=== PATIENT | male | born 2000 | race Two or more races ===

== ENCOUNTER 2022-07-25 18:23 | Emergency (ER) | payer MEDICAID ==
[~2022-07-25] VITALS: Ht 167.6 cm; Wt 58.1 kg
[2022-07-25] MEDS ORDERED: ONDANSETRON HCL 4 MG/2 ML VIAL IV ONE (18:45)
[2022-07-25] MEDS ORDERED: SODIUM CHLORIDE 0.9% 1,000 ML IV ONE (18:45)
[2022-07-25 19:22] LABS: Basophils # (auto) 0.1 10 ^3/uL (0-0.2); Basophils % (auto) 0.3 % (0.0-2.0); Eosinophils # (auto) 0 10 ^3/uL (0-0.8); Hematocrit 50.1 % (41.0-53.0); Lymphocytes # (auto) 1.9 10 ^3/uL (0.4-5.4); Lymphocytes % (auto) 8.7 % (10.0-50.0); Mean Corpuscular Hemoglobin 29.9 pg (28.0-32.0); Mean Corpuscular Volume 87.9 fL (80.0-100.0); Monocytes # (auto) 1.5 10 ^3/uL (0-1.3); Monocytes % (auto) 7.1 % (0.0-12.0); Neutrophils # (auto) 18.2 10 ^3/uL (1.6-8.6); Neutrophils % (auto) 83.9 % (37.0-80.0); Nucleated Red Blood Cells % 0.6 %; Red Cell Distribution Width 12.8 % (11.8-14.3); White Blood Cell 21.7 10^3/uL (4.4-10.8)
[2022-07-25 19:42] LABS: Albumin 4.8 g/dL (3.4-5.0); BUN/Creatinine Ratio 14.6; Calcium 9.7 mg/dL (8.5-10.1); Potassium 3.7 mmol/L (3.5-5.1)
[2022-07-25 19:52] LABS: Bilirubin, Total 0.8 mg/dL (0.2-1.0); Total Protein 8.3 g/dL (6.4-8.2)
[2022-07-26 00:02] LABS: Urine Bacteria NONE SEEN /hpf (None Seen); Urine Blood Negative /uL (Negative); Urine Mucus MODERATE (None Seen); Urine Specific Gravity 1.035 (1.001-1.035); Urine WBC 2 /hpf (0 - 3)
[2022-07-26 00:10] LABS: Alcohol, Urine < 3.0 mg/dL (0-10); Amphetamine Screen, Urine NEGATIVE (NEGATIVE); Barbiturate Scree,Urine NEGATIVE (NEGATIVE); Benzodiazephine Screen, Urine NEGATIVE (NEGATIVE); Cocaine Screen, Urine NEGATIVE (NEGATIVE); Opiate Scree,Urine NEGATIVE (NEGATIVE); Phencyclidine Screen, Urine NEGATIVE (NEGATIVE)
[2022-07-26 00:20] LABS: Cannabinoid Screen, Urine POSITIVE (NEGATIVE)
[2022-07-26] MEDS ORDERED: OXYCODONE W/ ACETAMINOPHEN 5/325MG TABLET PO ONE (02:30)
[2022-07-26] MEDS ORDERED: ONDA-144 PO (03:15)
[2022-07-26] MEDS ORDERED: CIPROFLOXACIN HCL 500 MG TAB PO ONE (03:15)
[2022-07-26] MEDS ORDERED: CIPR-173 PO (03:15)
[2022-07-26 03:35] VITALS: BP 112/70
== END 2022-07-26 03:44 | disposition home or self-care (01) ==
LOC: ER 18:23
DX: K52.9 Noninfective gastroenteritis and colitis, unspecified (principal); F12.10 Cannabis abuse, uncomplicated; Z77.22 Contact with and (suspected) exposure to environmental tobacco smoke (acute) (chronic); Z88.0 Allergy status to penicillin; Z79.899 Other long term (current) drug therapy
CPT/HCPCS: 36415; 74176; 80053; 80307; 81001; 84484; 85025; 93005; 96361; 96374; 99285; J2405; J7030